=== PATIENT | female | born 1995 | race Caucasian/White ===

== ENCOUNTER 2019-03-07 00:14 | Emergency (ER) | payer OTHER, SELFPAY ==
[~2019-03-07] VITALS: Ht 157.5 cm; Wt 71.7 kg
[2019-03-07 00:15] VITALS: BP 113/56
== END 2019-03-07 01:50 | disposition left against medical advice (07) ==
LOC: M ED 00:14
DX: Z53.29 Procedure and treatment not carried out because of patient's decision for other reasons (principal)

== ENCOUNTER 2019-03-07 00:25 | Outpatient (CLI) | payer OTHER ==
[~2019-03-07] VITALS: Ht 157.5 cm; Wt 71.0 kg
== END 2019-03-07 01:30 | disposition home or self-care (01) ==
LOC: M LDO 00:25
PROVIDERS: ATTEND Specialist
DX: O99.89 Other specified diseases and conditions complicating pregnancy, childbirth and the puerperium (principal); Z3A.21 21 weeks gestation of pregnancy; R10.9 Unspecified abdominal pain; R06.02 Shortness of breath
CPT/HCPCS: G0378; G0463

== ENCOUNTER 2019-03-07 01:31 | Emergency (ER) | payer OTHER ==
[~2019-03-07] VITALS: Ht 154.9 cm; Wt 71.0 kg
[2019-03-07 05:30] LABS: BASO % 0.1 % (0.0-1.0); EOS # 0.1 10^3/uL (0.0-0.50); HEMATOCRIT 28.1 % (36.0-47.0); LYMPH # 2.1 10^3/uL (1.5-6.5); LYMPH % 22.5 % (24.0-44.0); MEAN CORPUSCULAR HEMOGLOBIN 32.5 pg (27.0-33.0); MEAN CORPUSCULAR HGB CONC 35.6 g/dl (32.0-36.5); MEAN CORPUSCULAR VOLUME 91.2 fl (80.0-96.0); MONO # 0.4 10^3/uL (0.0-0.8); MONO % 4.8 % (0.0-5.0); NEUTROPHILS # 6.5 10^3/uL (1.8-7.7); NEUTROPHILS % 71.3 % (36.0-66.0); PLATELET COUNT, AUTOMATED 154 10^3/uL (150-450); RED BLOOD COUNT 3.08 10^6/uL (4.00-5.40); WHITE BLOOD COUNT 9.2 10^3/uL (4.0-10.0)
[2019-03-07 05:56] LABS: BLOOD UREA NITROGEN 6 MG/DL (7-18); CALCIUM LEVEL 8.7 MG/DL (8.5-10.1); CARBON DIOXIDE LEVEL 24 MEQ/L (21-32); CHLORIDE LEVEL 110 MEQ/L (98-107); CK-MB VALUE MASS < 1.0 NG/ML (<3.6); CPK CREATINE PHOSPHOKINASE 23 U/L (26-192); CREATININE FOR GFR 0.62 MG/DL (0.55-1.30); GLOMERULAR FILTRATION RATE > 60.0 (>60); GLUCOSE, FASTING 79 MG/DL (70-100); MB/CK RELATIVE INDEX 4.35 (< OR =4); POTASSIUM SERUM 4.2 MEQ/L (3.5-5.1); SODIUM LEVEL 141 MEQ/L (136-145); TROPONIN I < 0.02 NG/ML (< 0.10)
[2019-03-07] MEDS ORDERED: GI COCKTAIL 50ML BTL(HYOSCYAMINE/MAALOX/LIDOCAINE VISCOUS)(1:3:1) PO ONE (06:30)
[2019-03-07 07:00] VITALS: BP 106/62
--- NOTE | 2019-03-07 21:23 | ECGEPIP ---
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
== END 2019-03-07 07:10 | disposition home or self-care (01) ==
LOC: M ED 01:31
DX: O99.512 Diseases of the respiratory system complicating pregnancy, second trimester (principal); R06.00 Dyspnea, unspecified; J45.909 Unspecified asthma, uncomplicated; O99.412 Diseases of the circulatory system complicating pregnancy, second trimester; I45.10 Unspecified right bundle-branch block; O99.612 Diseases of the digestive system complicating pregnancy, second trimester; K27.9 Peptic ulcer, site unspecified, unspecified as acute or chronic, without hemorrhage or perforation; Z88.8 Allergy status to other drugs, medicaments and biological substances; Z3A.21 21 weeks gestation of pregnancy

== ENCOUNTER 2019-05-17 19:31 | Outpatient (CLI) | payer OTHER ==
[~2019-05-17] VITALS: Ht 157.5 cm; Wt 75.9 kg
[2019-05-17] MEDS ORDERED: TUMS500C PO (19:50)
[2019-05-17] MEDS ORDERED: ZANT150T40 PO (19:50)
[2019-05-17] MEDS ORDERED: PRENTAB9 PO (19:50)
[2019-05-17] MEDS ORDERED: MAPA500T2 PO (19:50)
[2019-05-17 19:57] VITALS: BP 107/59
[2019-05-17 20:39] VITALS: BP 107/62
[2019-05-17] MEDS ORDERED: ONDANSETRON 4 MG ORAL DISINTEGRATING TAB (Q0162 PER 1MG) PO ONE (21:00)
--- NOTE | 2019-05-17 21:08 | IPNPDOC ---
Text Note Date of Service The patient was seen on 05/17/19. NOTE Patient is a 23 yo g1 @ 31+2WKS presents to L&D with concern for epigastric pain with n/v and diarrhea x 1 day. She report she had emesis when after bf this morning. She went to be and when she woke up she started having epigastric pain and had watery diarrhea. Was not able to keep food down. She has history of GERD and currently on zantac. she did not get to take her zantac today due to concern for emesis. Now her epigastric pain has improved since this afternoon. She took zofran and refused GI cocktail because that caused her to have emesis earlier during this . vitals: reviewed, normal nad abd: gravid, soft, mild tenderness epigastric, no guarding or rebound fht: 140/mod anish/pos accel/no decel toco: quiet a/p patient with n/v/diarrhea resolving. tolerated oral and felt improved while in triage. Discussed with patient s/s to return sooner. continue with zantac. keep well hydration. f/u in clinic as schedule. DO KT VS,Karie, I+O VS, [place], I+O Vital Signs Date Time Temp Pulse Resp B/P (MAP) Pulse Ox O2 Delivery O2 Flow Rate FiO2 05/17/19 20:39 105 18 107/62 (77) 05/17/19 19:57 98.2 KEVYN MERAZ DO May 17, 2019 21:08
[2019-05-17] MEDS ORDERED: GI COCKTAIL 50ML BTL(HYOSCYAMINE/MAALOX/LIDOCAINE VISCOUS)(1:3:1) PO ONE (22:00)
== END 2019-05-17 21:00 | disposition home or self-care (01) ==
LOC: M LDO 19:31
PROVIDERS: ATTEND Obstetrics & Gynecology
DX: O99.89 Other specified diseases and conditions complicating pregnancy, childbirth and the puerperium (principal); Z3A.31 31 weeks gestation of pregnancy; R11.2 Nausea with vomiting, unspecified; R19.7 Diarrhea, unspecified
CPT/HCPCS: 59025; G0378; G0463; Q0162

== ENCOUNTER 2019-07-05 09:34 | Outpatient (CLI) | payer OTHER ==
[~2019-07-05] VITALS: Ht 157.5 cm; Wt 76.6 kg
[~2019-07-05 09:34] MED LIST: MAPA500T2 PO; PRENTAB9 PO; TUMS500C PO; ZANT150T40 PO
--- NOTE | 2019-07-05 17:24 | IPNPDOC ---
Text Note Date of Service The patient was seen on 07/05/19. NOTE patient is a 23 yo G1 @ 38+2wks gestation presents with concern for contractions as well as possible leakage of fluid. She did not have a gush of fluid, but had trickle of clear discharge. She had coitus shortly before. denies VB. 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 discharge instructions given. Discussed with patient option of social induction to delivery at 39wks gestation to coordinate care with appropriate provider. Patient and spouse desires to have induction scheduled. patient scheduled for induction on night of [id number]. all questions answered. DO KT Carreon LUAT N. DO Jul 05, 2019 17:24
== END 2019-07-05 15:35 | disposition home or self-care (01) ==
LOC: M LDO 09:34
PROVIDERS: ATTEND Obstetrics & Gynecology
DX: O26.893 Other specified pregnancy related conditions, third trimester (principal); O47.1 False labor at or after 37 completed weeks of gestation; Z3A.38 38 weeks gestation of pregnancy
CPT/HCPCS: 59025; G0378; G0463

== ENCOUNTER 2019-07-09 22:15 | Inpatient (IN) | payer OTHER ==
[~2019-07-09] VITALS: Ht 157.5 cm; Wt 77.6 kg
[2019-07-09] MEDS ORDERED: LACTATED RINGER'S 1000 ML IV STA (22:23)
[2019-07-09] MEDS: LR 1,000 ML IV SCH (22:23)
[2019-07-09] MEDS ORDERED: OXYTOCIN DRIP 30 UNITS in IV 1 EA IV SCH (22:30)
[2019-07-09 23:01] LABS: HEMOGLOBIN 11.9 g/dl (12.0-15.5); MEAN CORPUSCULAR HEMOGLOBIN 31.3 pg (27.0-33.0); MEAN CORPUSCULAR VOLUME 92.1 fl (80.0-96.0); PLATELET COUNT, AUTOMATED 147 10^3/uL (150-450); WHITE BLOOD COUNT 11.3 10^3/uL (4.0-10.0)
--- NOTE | 2019-07-09 23:30 | HPEPDOC ---
Obstetrical History & Physical General Date of Admission Jul 09, 2019 at 22:15 History of Present Illness Patient is a 23 yo G1 @38+6wks by LMP c/w 14wks US GORDO([id number]) presents for social induction. patient without concerns. denies ctx/lof/vb. 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 last used 5 years ago Surgical History: Upper endoscopy Family History Significant Family History: No pertinent family hx Social History Marital Status: Family situation: Spouse/partner home * Smoker: non-smoker Alcohol: Denies Drugs: denies Imunizations Tdap status: current Influenza Status: declined Allergies Coded Allergies: guaifenesin (Verified Allergy, Unknown, 07/05/19) Medications Scheduled Calcium Carbonate (Tums) 200 Mg Tab.chew, 2 TAB PO QID for cough and congestion No.137/Iron/Folic Acd ( Vitamin Tablet) 1 Each Tablet, 1 TAB PO DAILY Miscellaneous Medications Acetaminophen (Mapap) 500 Mg Tablet, 1,000 MG PO Physical Examination Physical Examination GENERAL: Alert and oriented times three. ABDOMEN: Gravid and non-tender to touch. FETUS: Fetus is vertex (VTX) by Ronnell and by cervical exam. HEART RATE: s1s2 s m/g/c LUNGS: Clear to auscultation (CTA) s w/r/r EXTREMITIES: No edema/erythema/tenderness EFW: 3200gm Laboratory Data 24H LABS Laboratory Tests 2 07/09/19 22:56: Nucleated Red Blood Cells % (auto) 0.0 CBC/BMP Laboratory Tests 07/09/19 22:56 Pertinent Laboratoy Data Blood Type: A+ RBC Antibody Screen: Negative HIV: Negative Hepatitis B: Negative Rapid Plasma Reagin: Nonreactive Rubella: Immune Chlamydia/Gonorrhea: Positive Group B Streptococcus: Negative Anatomy Ultrasound Placenta Location: Posterior Normal Anatomy: Yes Placenta Previa: No Vaginal Examination Dilation: 3 cm Effacement: 50% Station: -2 Cervical Consistency: Medium Cervical Position: Middle Presentation: Cephalic presentation Assessment Heart Rate (FHR): 120 Variability: Moderate Accelerations: Positive Decelerations: None Tocometer Contractions: No Assessment/Plan Assessment patient is a 23 yo G1 @38+6wks gestation by lmp c/w 14wks US GORDO([id number]) admitted for social induction of labor. Discussed using oxytocin and arom as needed for induction of labor. Discussed monitoring with external monitors for contractions and heart rate with internal monitor as clinically indicated. Risk of delivery for maternal/ concerns, risk of infection requiring iv antibiotics, bleeding needing blood transfusion and associated risk of anaphylactic reaction and transmission of blood borne pathogens such as HIV and hepatitis, use of forceps or vacuum to assist in vaginal delivery in an emergency or maternal exhaustion and associated risks of injuring to baby and worsen maternal laceration, episiotomy discussed with patient. Plan Admit and orient. Financial Adviser and consent. Diet: clear liquid Group B Streptococcus (GBS) negative Labs and intravenous (IV) per unit protocol. Anticipate normal spontaneous delivery C-S as indicated KEVYN MERAZ DO Jul 09, 2019 23:27
[2019-07-09] MEDS ORDERED: PROMETHAZINE INJ 25 MG/ML VIAL (J2550) IV ONE (23:45)
[2019-07-09] MEDS ORDERED: NALBUPHINE HCL 10 MG/ML AMP (J2300) IM ONE (23:45)
[2019-07-09] MEDS ORDERED: NALBUPHINE HCL 10 MG/ML AMP (J2300) IV ONE (23:45)
[2019-07-10] VITALS (12 sets, daily range): BP systolic 105–137; BP diastolic 57–80
[2019-07-10] MEDS: LR 1,000 ML IV SCH (07:26)
--- NOTE | 2019-07-10 07:46 | IPNPDOC ---
Text Note Date of Service The patient was seen on 07/10/19. NOTE Patient is a 23 yo G1 @ 39wks gestation under going social induction of labor. she reports feeling mild contractions. pit: 10mU/min vitals: normal nad fht: 125/mod anish/pos accel/no decel toco: ctx q 2mins ce: 3-4/50/-2, AROM clear a/p patient not in labor, continue to titrate pit to effect. pain management per patient preference. recheck in 6-8hrs, sooner as indicated. do saige VS,Karie, I+O VS, Karie, I+O Laboratory Tests 07/09/19 22:56 KEVYN MERAZ DO Jul 10, 2019 07:46
--- NOTE | 2019-07-10 13:14 | DNPDOC ---
[facility] Delivery Note Delivery Note DATE OF DELIVERY: 07/10/2019 PREDELIVERY DIAGNOSIS: 39 weeks' gestation POST DELIVERY DIAGNOSIS: Delivered. PROCEDURE: Spontaneous vaginal delivery MARKETING SUPPORT MANAGER: Dr. Jazzmine Carreon DO ANESTHESIA: none ESTIMATED BLOOD LOSS: 200 mL. FINDINGS: 7pound 1 ounce, 3210gm, female infant, Score 9/9, left compound hand. DELIVERY SUMMARY: With good maternal effort, baby delivered OA, restituted LOT. Anterior shoulder delivered with left compound hand. Posterior shoulder delivered, body followed with ease. baby placed on maternal abdomen. cord clamped x2 and cut by FOB. Pitocin bolus started, placenta delivered spontaneously, fundus massaged firm. Inspection revealed left labial tear, hemostatic, not needing repair. baby and mother bonding when I left the room. DO KT Carreon LUAT N. DO Jul 10, 2019 13:14
[2019-07-10] MEDS ORDERED: IBUPROFEN 800 MG TAB PO PRN (13:45)
[2019-07-10] MEDS ORDERED: DIBUCAINE 1% OINTMENT 30GM TOP PRN (13:45)
[2019-07-10] MEDS ORDERED: DOCUSATE SODIUM 100 MG CAP PO PRN (13:45)
[2019-07-10] MEDS ORDERED: ACETAMINOPHEN 500 MG TAB PO PRN (13:45)
[2019-07-10] MEDS ORDERED: RHOGAM 300 MCG (1500 IU) INJ (J2790) IM SCH (13:45)
[2019-07-10] MEDS ORDERED: MEASLES,MUMPS,RUBELLA VACCINE INJ (MMR-II) (90707) SC SCH (13:45)
[2019-07-10] MEDS ORDERED: ACETAMINOPHEN 650 MG SUPP PR PRN (13:45)
[2019-07-10] MEDS ORDERED: LR 1,000 ML IV SCH (14:00)
[2019-07-10] MEDS ORDERED: OXYTOCIN DRIP 30 UNITS in IV 1 EA IV SCH (14:00)
[2019-07-11 05:40] VITALS: BP 102/56
--- NOTE | 2019-07-11 08:03 | IPNPDOC ---
Progress Note Date of Service: Jul 11, 2019 Day#: 1 Progress Note SUBJECT: Patient is a 23 yo S/P PPD #1. She has been ambulating, voi ding spontaneously without issue and tolerating regular diet. Breast feeding without issue. Reports lochia is like a normal period. Plans on NorQD for contraceptive. patient's nurse solar sales representative present for entirety of visit. OBJECTIVE: VITAL SIGNS: Within normal limits, afebrile. Alert and oriented times three. Abdomen: Fundus firm at U-2. Soft, NTTP. LE: no edema/erythema/tenderness A/P patient is ppd #1, doing well. encourage bf. discussed contraception. cont routine PPC. anticipate d/c home tomorrow. Le, DO VS, I&O, 24H, Fishbone Vital Signs/I&O Vital Signs Date Time Temp Pulse Resp B/P (MAP) Pulse Ox O2 Delivery O2 Flow Rate FiO2 07/11/19 05:40 97.5 73 14 102/56 (71) 100 Room Air I&O- Last 24 Hours up to 6 AM 07/11/19 06:00 Intake Total 2698 ml Output Total 1800 ml Balance 898 ml KEVYN MERAZ DO Jul 11, 2019 08:03
[2019-07-11] MEDS ORDERED: PRENATAL VITAMINS CHEWABLE TABLET PO SCH (09:00)
[2019-07-11 17:54] VITALS: BP 114/67
[2019-07-12 06:02] VITALS: BP 105/57
[2019-07-12] MEDS ORDERED: IBUP80TA PO (09:44)
[2019-07-12] MEDS ORDERED: DIBU10OI TOP (09:44)
--- NOTE | 2019-07-12 09:48 | IPNPDOC ---
Progress Note Date of Service: Jul 12, 2019 Day#: 2 Progress Note PPD 2 SUBJECT: Patient is a 24yo [id number] s/p uncomplicated , doing well on PPD #2. She has been ambulating, voiding spontaneously without issue and tolerating regular diet. Breast feeding without issue. Reports lochia is like a normal period. No f/c/n/v/CP/SOB. OBJECTIVE: VITAL SIGNS: Within normal limits, afebrile. Alert and oriented times three. Abdomen: Fundus firm at U-2. Soft, NTTP. ASSESSMENT: Patient is a 24yo [id number] s/p uncomplicated , doing well on PPD #2. Vitals within normal limits, afebrile, hemodynamically stable with no evidence of infection. PLAN: 1. Discharge to home today. 2. Tylenol and Motrin for pain. 3. Encourage breast feeding and ambulation. 4. Minipill for contraception prescribed 5. Routine PP visit in 6 weeks in clinic. 6. Discussed return precautions at length. Dr. Deborah Caban MD VS, I&O, 24H, Fishbone Vital Signs/I&O Vital Signs Date Time Temp Pulse Resp B/P (MAP) Pulse Ox O2 Delivery O2 Flow Rate FiO2 07/12/19 06:02 99.3 74 16 105/57 (73) 07/11/19 05:40 100 Room Air Deborah Caban MD Jul 12, 2019 09:48
--- NOTE | 2019-07-12 09:49 | OBDS ---
[facility] Obstetrical Discharge Sum. Obstetrical Discharge Summary Seedling Sorter/Provider: KEVYN MERAZ DO : 1 Term: 1 Pre-term: 0 Abortions: 0 Livin VDRL: Non-Reactive Rh: Positive Rubella: Immune Infant Sex: Female Weight: pounds, grams (3210gm) A/P, Post Course List any complications Admission diagnosis: Discharge diagnosis: Condition at Discharge: stable Discharge Instructions: Home Activity: as tolerated Diet: regular Medications: Follow-up: 1-2 weeks Hospital course: Patient admitted to labor and delivery for social induction. Patient progressed to have spontaneous vaginal delivery at 39wks gestation. course was uncomplicated and on day 2 she was meeting all milestones and desired discharge. She had normal vitals, benign exam and was hemodynamically stable wit h no evidence of infection. KEVYN Saxena DO Jul 10, 2019 13:18 Deborah Caban MD Jul 12, 2019 09:49
== END 2019-07-12 13:00 | disposition home or self-care (01) | DRG 807 ==
LOC: M LDI 22:15 → M OBS 07-10 16:08
PROVIDERS: ADMIT Obstetrics & Gynecology; ATTEND Obstetrics & Gynecology
PROC: 3E033VJ Introduction of Other Hormone into Peripheral Vein, Percutaneous Approach (ICD-10-PCS; 2019-07-09)
PROC: 10E0XZZ Delivery of Products of Conception, External Approach (ICD-10-PCS; principal; 2019-07-10)
DX: O32.6XX0 Maternal care for compound presentation, not applicable or unspecified (principal); Z37.0 Single live birth; Z3A.38 38 weeks gestation of pregnancy

== ENCOUNTER 2020-01-28 16:42 | Inpatient (IN) | payer OTHER ==
[~2020-01-28] VITALS: Ht 157.5 cm; Wt 70.4 kg
[~2020-01-28 16:42] MED LIST changes: +DIBU10OI TOP; +IBUP80TA PO
[2020-01-28 17:46] LABS: HEMOGLOBIN 13.9 g/dl (12.0-15.5); MEAN CORPUSCULAR HEMOGLOBIN 29.2 pg (27.0-33.0); MEAN CORPUSCULAR HGB CONC 34.8 g/dl (32.0-36.5); PLATELET COUNT, AUTOMATED 204 10^3/uL (150-450); RED BLOOD COUNT 4.76 10^6/uL (4.00-5.40); WHITE BLOOD COUNT 10.9 10^3/uL (4.0-10.0)
[2020-01-28 18:14] LABS: HCG, SERUM QUALITATIVE NEGATIVE (NEGATIVE)
[2020-01-28 18:18] LABS: AMPHETAMINES LEVEL URINE NEGATIVE (NEGATIVE); BARBITURATES URINE NEGATIVE (NEGATIVE); BENZODIAZEPINES URINE NEGATIVE (NEGATIVE); CANNABINOIDS URINE NEGATIVE (NEGATIVE); COCAINE METABOLITE URINE NEGATIVE (NEGATIVE); METHADONE URINE NEGATIVE (NEGATIVE); OPIATES URINE NEGATIVE (NEGATIVE); PHENCYCLIDINE URINE NEGATIVE (NEGATIVE)
[2020-01-28 18:22] LABS: ACETAMINOPHEN LEVEL < 2.0 UG/ML (10.0-30.0); ALT/SGPT 37 U/L (12-78); BILIRUBIN,DIRECT 0.2 MG/DL (0.0-0.2); BILIRUBIN,TOTAL 0.4 MG/DL (0.2-1.0); BLOOD UREA NITROGEN 17 MG/DL (7-18); CALCIUM LEVEL 9.2 MG/DL (8.5-10.1); CARBON DIOXIDE LEVEL 28 MEQ/L (21-32); CHLORIDE LEVEL 107 MEQ/L (98-107); CREATININE FOR GFR 0.99 MG/DL (0.55-1.30); ETHYL ALCOHOL (ETHANOL) < 0.003 % (0.000-0.010); GLOMERULAR FILTRATION RATE > 60.0 (>60); GLUCOSE, FASTING 69 MG/DL (70-100); SALICYLATE LEVEL < 1.7 MG/DL (5.0-30.0); SODIUM LEVEL 140 MEQ/L (136-145); TOTAL PROTEIN 7.8 GM/DL (6.4-8.2)
[2020-01-28] MEDS ORDERED: MAALOX 30 ML SUSP *UDC PO PRN (19:15)
[2020-01-28] MEDS ORDERED: MOM 30ML SUSPENSION UDC PO PRN (19:15)
[2020-01-28] MEDS ORDERED: ACETAMINOPHEN TAB 650MG DOSE (2X325MG) PO PRN (19:15)
[2020-01-28] MEDS ORDERED: traZODone 50 MG TAB PO PRN (19:15)
[2020-01-28 21:08] VITALS: BP 135/82
[2020-01-29 06:25] VITALS: BP 124/76
[2020-01-29] MEDS: ARIPiprazole 2 MG TAB PO SCH (12:48)
--- NOTE | 2020-01-29 15:21 | HPEPDOC ---
[facility] Medical History & Physical Date of Admission Jan 29, 2020 Date of Service: Jan 29, 2020 Attending Physician: Nakita Fatima MD History and Physical HISTORY OF PRESENT ILLNESS: Patient is a 24-year-old female with past medical history of depression, prior suicidal attempt by overdose, peptic ulcer disease, depression who presented to [facility] emergency room on 01/28/2020 with the chief complaint of feeling depressed and having suicidal ideations. According to the patient she h as been very stressed at home with an infant with biliary colic, a spouse who she says does not help and feeling overwhelmed. She feels as though she doesn't have a good support system at home and admits to having relationship stressors with her and with her 's family. She admits to feeling down and tearful, anxious at times, having decreased motivation, feeling impulsive, having nightmares about hurting her baby, having poor sleep. She says that she has thought about hurting her baby but has caught herself prior to shaking the baby. She was previously on Zoloft, but her therapist stopped the meds 2 weeks ago due to her feeling as though this was not helping. She's been trying to get into see a psychiatrist for over a month and she just got a new patient appointment at [facility]. 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 He was deployed a lot for the first 6 months of her new baby's life and at times does not seem interested in trying to help her. She often feels overwhelmed because he acts disinterested and upset at her if sh e asks for help. She did not have a plan to hurt herself but she told her that if she did not get help now that she would probably start planning to hurt herself again. Her came home from work and brought her to the emergency room. In the emergency room her UDS was negative, she was cooperative. The patient was ultimately admitted to inpatient mental health with the chief diagnosis of unspecified depressive disorder, suicidal ideation. REVIEW OF SYSTEMS: Negative except for what is mentioned above. PAST MEDICAL HISTORY: 1. Depression 2. Intermittent right lower quadrant pain believed to be secondary to ovaries, chronic 3. History of benign tumor diagnosed in 2018 later found to have resolved 4. Peptic ulcer disease/GERD 5. depression 6. Anxiety PAST SURGICAL HISTORY: 1. Endoscopy FAMILY HISTORY: Father: Patient does not know much about her father's medical history, unknown and he is alive Mother: Polycystic kidney disease, asthma, bipolar disorder. Alive SOCIAL HISTORY: The patient denies smoking, drinks alcohol socially. Denies illicit drug use. She lives in the local area with her who is active duty . Patient follows regularly with the behavioral health therapist and had a recent psychiatric referral to [facility]. She has not seen her psychiatrist yet. ALLERGIES: Please see below. HOME MEDICATIONS: Please see below. PHYSICAL EXAMINATION: CONSTITUTIONAL: No acute distress, resting comfortably, AAO x 3 EYES: PERRLA, EOM intact HENT, MOUTH: Normocephalic, atraumatic, moist mucous membranes, NECK: SUPPLE, no JVD, no lymphadenopathy, no carotid bruit CV: Regular rate and rhythm, S1S2 normal, no murmurs/rubs/gallops RESPIRATORY: Clear to auscultation bilaterally, no rales/rhonchi/wheezes GI: BS positive in 4 quadrants, soft, nontender, nondistended, no rebound or guarding, no organomegaly : Deferred MUSCULOSKELETAL: Normal ROM. No cyanosis, clubbing, swelling, joint deformity, extremity edema INTEGUMENTARY: Intact, no rashes, no lesions, no erythema NEUROLOGIC: Cranial Nerves II-XII are intact, no focal deficits PSYCHIATRIC: Mood and affect are normal LABORATORY DATA: Please see below IMAGING: None ASSESSMENT: 24-year-old female admitted for unspecified depressive disorder, suicidal ideation. PLAN: 1. Unspecified depressive disorder, suicide ideation. Will defer to psychiatric team. 2. depression. Will defer to psychiatric team. 3. Peptic ulcer disease history/GERD. The patient is not on outpatient treatment. Denies symptoms. 4. Intermittent right lower quadrant pain believed to be secondary to ovaries, chronic. Patient states that the pain returns monthly and is sometimes correlated with her menses. At this time this is chronic and stable. She is advised to follow-up with her DIETARY DIRECTOR or PCP. DISPOSITION: At this time it appears as though all of her active medical issues are stable. We will sign off but if we are needed again please do not hesitate to reach out to us and discuss the case. Thank you. Vital Signs Vital Signs Date Time Temp Pulse Resp B/P (MAP) Pulse Ox O2 Delivery O2 Flow Rate FiO2 6/20/20 06:25 97.6 80 12 124/76 (92) 99 Room Air Laboratory Data Labs 24H Laboratory Tests 2 01/28/20 17:30: Nucleated Red Blood Cells % (auto) 0.0, Anion Gap 5L, Glomerular Filtration Rate > 60.0, Calcium Level 9.2, Total Bilirubin 0.4, Direct Bilirubin 0.2, Aspartate Amino Transf (AST/SGOT) 23, Alanine Aminotransferase (ALT/SGPT) 37, Alkaline Phosphatase 134H, Total Protein 7.8, Albumin 4.0, Albumin/Globulin Ratio 1.1L, Thyroid Stimulating Hormone (TSH) 2.880, Human Chorionic Gonadotropin, Qual NEGATIVE, Salicylates Level < 1.7L, Urine Opiates Screen NEGATIVE, Urine Methadone Screen NEGATIVE, Acetaminophen Level < 2.0L, Urine Barbiturates Screen NEGATIVE, Urine Phencyclidine Screen NEGATIVE, Urine Amphetamines Screen NEGATIVE, Urine Benzodiazepines Screen NEGATIVE, Urine Cocaine Metabolite Screen NEGATIVE, Urine Cannabinoids Screen NEGATIVE, Ethyl Alcohol Level < 0.003 CBC/BMP Laboratory Tests 01/28/20 17:30 Home Medications No Active Prescriptions or Reported Meds Allergies Coded Allergies: guaifenesin (Verified Allergy, Unknown, 07/05/19) A-FIB/CHADSVASC A-FIB History Current/History of A-Fib/PAF?: No Current PO Anticoag Therapy: No Age/Risk Factor Scoring CHADSVASC: CHADSVASC Response (Comments) Value Age Risk Factor Age < 65 years old 0 Gender Risk Factor Female 1 Hx of CHF No 0 Hx of HTN No 0 Hx of Stroke/TIA/or VTE No 0 Hx of Diabetes No 0 Hx of Vascular Disease No 0 Total 1 Treatment Treatment ordered: NONE (none) Nakita Fatima MD Jan 29, 2020 15:21
[2020-01-29 15:27] VITALS: BP 108/59
[2020-01-30] MEDS ORDERED: IBUPROFEN 600MG TAB PO PRN (00:30)
[2020-01-30 06:05] VITALS: BP 115/56
[2020-01-30 08:53] LABS: CHOLESTEROL RISK RATIO 2.157 (<5)
[2020-01-30] MEDS: ARIPiprazole 2 MG TAB PO SCH (09:01)
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
[2020-01-30 15:49] VITALS: BP 121/59
[2020-01-31 06:32] VITALS: BP 132/68
[2020-01-31] MEDS: ARIPiprazole 2 MG TAB PO SCH (08:10)
--- NOTE | 2020-01-31 10:54 | MHIPN ---
DATE: 01/30/2020 The patient is seen via telepsychiatry due to the current coronavirus crisis. The patient today tells me that she is not feeling depressed today. She says she is keeping busy and enjoying it. She says she is doing puzzles and activities. She also feels that the medications are helping which she is referring to the Abilify as she slept well. She has no suicidal thoughts. MENTAL STATUS EXAMINATION: She is alert, oriented times three. Pleasant and cooperative, verbally spontaneous. Eye contact is good. Mood is better. Affect full range and appropriate. She is not psychotic, suicidal or homicidal. Concentration is fair. Memory intact. Insight and judgment fair. DIAGNOSIS: Bipolar disorder type 2. TREATMENT PLAN: Will continue to monitor the patient for continued elevation in stabilization of her mood. Continued resolution of suicidal ideation.
[2020-01-31 16:34] VITALS: BP 121/65
--- NOTE | 2020-01-31 19:59 | MHIPN ---
DATE: 01/31/2020 This patient is seen via telepsychiatry due to the current coronavirus. The patient today states that she is doing good. She says she is not feeling as depressed, that she slept good. She feels that "just having some time to myself" is helping her feel better. MENTAL STATUS EXAM: She is alert and oriented times three. She is pleasant and cooperative, verbally spontaneous. Eye contact is good. No formal thought disorder noted. Her mood is "better." Affect is full range and appropriate to mood. She is not psychotic. She is denying suicidal or homicidal ideations. Concentration is fair. Memory is intact. Insight and judgment is fair. DIAGNOSIS: Bipolar disorder type 2. TREATMENT PLAN: At this point, the patient seems to be tolerating the Abilify well so far. It sounds like she is sleeping better, energy level is going back to normal. She is denying any suicidal ideations, and she says that she is feeling less depressed. We will continue to monitor the patient for continued elevation and stabilization of her mood and continued resolution of suicidal ideations, and we will look at setting up a meeting with patient and prior to discharge.
[2020-02-01 06:29] VITALS: BP 113/62
[2020-02-01] MEDS: ARIPiprazole 2 MG TAB PO SCH (08:12)
[2020-02-01] MEDS ORDERED: ABIL1TAB13 PO (13:45)
--- NOTE | 2020-02-04 15:54 | MHDS ---
DATE OF ADMISSION: 01/28/2020 DATE OF DISCHARGE: 02/01/2020 This evaluation is conducted via telepsychiatry due to the current coronavirus crisis. This patient is a 24-year-old woman who is admitted with complaints of severe depression and having suicidal ideations. The depression appeared to be type that started for the past 6 months, at which time she gave to her daughter. Upon further evaluation, however, I felt that this patient met the criteria for bipolar disorder. MEDICAL EVALUATION AND LABORATORY RESULTS: The patient did have a physical exam that was completed by Dr. Nakita Fatima. The patient has a history of peptic ulcer disease and gastroesophageal reflux disease (GERD) that was stable, and she has a history of intermittent right lower quadrant pain secondary to chronic ovarian pain, and that is followed by her [facility] provider. She had a CBC with differential and renal profile, and that was all normal, and we did do a lipid profile. At discharge, the patient was alert and oriented times three. She was pleasant and cooperative, verbally spontaneous. Eye contact good. Mood is good. Affect full range and appropriate. She is not psychotic, suicidal, homicidal. Concentration and memory are good. Insight and judgment are good. DISCHARGE DIAGNOSIS: Bipolar disorder, type 2. COURSE DURING HOSPITALIZATION: As I said, the patient was very depressed at first and had some suicidal thoughts that quickly resolved. By the time of discharge she was indicating that she was no longer feeling depressed. I started her on Abilify 2 mg daily, which she tolerated well. The patient had a phone meeting with the community development planner and her . The indicated that he had no concerns about the patient being discharged. The patient had advised me that she and her had talked about, and the understood now, that she needed some assistance with taking care of their daughter. The community development planner arranged outpatient followup for her so that she would continue to see a counselor and see a psychiatrist to continue her psychiatric medications. MYRON
[2020-09-19] MEDS ORDERED: BUPR150T4 PO (13:35)
[2020-09-19] MEDS ORDERED: LEVO1.5T2 PO (13:35)
[2020-09-19] MEDS ORDERED: ARIP1TAB6 PO (13:35)
[2020-09-19] MEDS ORDERED: PROAAER10 INH (13:51)
== END 2020-02-01 14:59 | disposition home or self-care (01) | DRG 885 ==
LOC: M ED 16:42 → M PSY 19:16 → M ED 20:02
PROVIDERS: ADMIT Psychiatry & Neurology Psychiatry; ATTEND Psychiatry & Neurology Addiction Medicine
DX: F31.81 Bipolar II disorder (principal); Z91.5 Personal history of self-harm; Z62.811 Personal history of psychological abuse in childhood; Z62.810 Personal history of physical and sexual abuse in childhood; Z91.410 Personal history of adult physical and sexual abuse; K21.9 Gastro-esophageal reflux disease without esophagitis; Z81.8 Family history of other mental and behavioral disorders; R10.31 Right lower quadrant pain; Z88.8 Allergy status to other drugs, medicaments and biological substances

== ENCOUNTER 2020-09-26 09:52 | Day surgery (SDC) | payer OTHER ==
[~2020-09-26] VITALS: Ht 157.5 cm; Wt 75.3 kg
[~2020-09-26 09:52] MED LIST changes: +ABIL1TAB13 PO; +ARIP1TAB6 PO; +BUPR150T4 PO; +LEVO1.5T2 PO; +LR 1,000 ML IV ONE; +PROAAER10 INH
--- OUTSIDE RECORDS SUMMARY | 2020-09-26 09:55 | CCD ---
Author Author [facility] Organization [facility] Address Unknown Phone Unavailable Care Team Providers Care Gravity Prospecting Supervisor Name Role Phone Vi STEPHENS Unavailable Unavailable CHAD DAWSON Unavailable Unavailable Chioma RANGEL Unavailable Unavailable GURINDER HAJI Unavailable Unavailable Re-disclosure Warning The records that you are about to access may contain information from federally-assisted alcohol or drug abuse programs. If such information is present, then the following federally mandated warning applies: This information has been disclosed to you from records protected by federal confidentiality rules (42 CFR part 2). The federal rules prohibit you from making any further disclosure of this information unless further disclosure is expressly permitted by the written consent of the person to whom it pertains or as otherwise permitted by 42 CFR part 2. A general authorization for the release of medical or other information is NOT sufficient for this purpose. The Federal rules restrict any use of the information to criminally investigate or prosecute any alcohol or drug abuse patient.The records that you are about to access may contain highly sensitive health information, the redisclosure of which is protected by Article 27-F of the [facility] Public Health law. If you continue you may have access to information: Regarding HIV / AIDS; Provided by facilities licensed or operated by the [facility] Office of Mental Health; or Provided by the [facility] Office for People With Developmental Disabilities. If such information is present, then the following [facility] mandated warning applies: This information has been disclosed to you from confidential records which are protected by state law. State law prohibits you from making any further disclosure of this information without the specific written consent of the person to whom it pertains, or as otherwise permitted by law. Any unauthorized further disclosure in violation of state law may result in a fine or retirement sentence or both. A general authorization for the release of medical or other information is NOT sufficient authorization for further disc losure. Encounters Encounter Providers Location Date Indications Data Source(s ) Outpatient Attender: HÉCTOR STEPHENS 09/21/2020 11:00:00 AM E [facility] Outpatient Attender: HÉCTOR STEPHENS 09/05/2020 01:00:00 PM E [facility] Outpatient Attender: HÉCTOR STEPHENS 08/31/2020 11:00:00 AM E [facility] Outpatient Attender: GURINDER HAJI 08/28/2020 01:30:00 PM ES [facility] Outpatient Attender: HÉCTOR STEPHENS 08/17/2020 10:00:00 AM [facility] Outpatient Attender: HÉCTOR STEPHENS 08/08/2020 10:00:00 AM E [facility] Outpatient Attender: HÉCTOR STEPHENS 07/18/2020 10:00:00 AM E [facility] Outpatient Attender: HÉCTOR STEPHENS 07/10/2020 10:00:00 AM [facility] Outpatient Attender: GURINDER HAJI 07/03/2020 01:30:00 PM [facility] Outpatient Attender: HÉCTOR STEPHENS 06/27/2020 03:00:00 PM E [facility] Outpatient Attender: HÉCTOR STEPHENS 06/13/2020 03:00:00 PM E [facility] Outpatient Attender: HÉCTOR STEPHENS 05/30/2020 03:00:00 PM E [facility] Outpatient Attender: HÉCTOR STEPHENS 05/12/2020 02:00:00 PM [facility] Outpatient Attender: GURINDER HAJI 05/08/2020 12:30:00 PM ED [facility] Outpatient Attender: HÉCTOR STEPHENS 05/04/2020 10:00:00 AM E [facility] Outpatient Attender: GURINDER HAJI 03/20/2020 09:06:00 AM ED [facility] Outpatient Attender: GURINDER HAJI 03/06/2020 10:30:00 AM ED [facility] Outpatient Attender: GURINDER HAJI 02/28/2020 08:13:00 AM ED [facility] Outpatient Attender: HARINDER RANGEL 02/15/2020 01:00:00 PM [facility] Outpatient Attender: CHAD DAWSON 01/24/2020 11:51:00 AM [facility] Insurance Providers Payer name Policy type / Coverage type Policy ID Covered green party ID Covered green party's relationship to campos Policy Campos Plan Information [facility] [id number] [facility] [id number] [facility] [id number] [facility] [id number] [facility] [id number] [facility] [id number] [facility] [id number] [facility] [id number] [facility] [id number] [facility] [id number] SELF PAY ONLY [id number] SP [id number] Problems, Conditions, and Diagnoses Code Display Name Description Problem Type Effective Dates Data Source(s) F41.9 Anxiety disorder, unspecified ANXIETY DISORDER, UNSPEC IFIED Diagnosis 09/05/2020 01:00:00 PM [facility] F31.9 Bipolar disorder, unspecified BIPOLAR DISORDER, UNSPEC IFIED Diagnosis 09/05/2020 01:00:00 PM [facility]
[2020-09-26 10:38] LABS: HEMATOCRIT 41.8 % (36.0-47.0); HEMOGLOBIN 13.7 g/dl (12.0-15.5); MEAN CORPUSCULAR HEMOGLOBIN 29.1 pg (27.0-33.0); MEAN CORPUSCULAR HGB CONC 32.8 g/dl (32.0-36.5); MEAN CORPUSCULAR VOLUME 88.9 fl (80.0-96.0); PLATELET COUNT, AUTOMATED 204 10^3/uL (150-450); WHITE BLOOD COUNT 8.9 10^3/uL (4.0-10.0)
[2020-09-26 11:16] LABS: HCG, SERUM QUALITATIVE NEGATIVE (NEGATIVE)
[2020-09-26] MEDS ORDERED: METOCLOPRAMIDE INJ 10MG/2ML VIAL (J2765 PER 1) As Ordered ONE (12:54)
[2020-09-26] MEDS ORDERED: ROCURONIUM BROMIDE 50 MG/5 ML VIAL As Ordered ONE (12:54)
[2020-09-26] MEDS ORDERED: ONDANSETRON 4MG/2ML VIAL As Ordered ONE (12:54)
[2020-09-26] MEDS ORDERED: propofoL 200 MG/20 ML VIAL As Ordered ONE (12:54)
[2020-09-26] MEDS ORDERED: LIDOCAINE 2% 100MG/5ML SDV (FOR ANES.) As Ordered ONE (12:54)
[2020-09-26] MEDS ORDERED: fentaNYL 100 MCG/2 ML INJECTION (J3010) As Ordered ONE (12:57)
[2020-09-26] MEDS ORDERED: MIDAZOLAM INJ 2MG/2ML VIAL (J2250 PER 1MG) As Ordered ONE (13:00)
[2020-09-26] MEDS ORDERED: BUPIVACAINE HCL 0.5% 10ML VIAL As Ordered ONE (13:41)
[2020-09-26] MEDS ORDERED: ACETAMINOPHEN 650 MG SUPP As Ordered ONE (13:41)
[2020-09-26] MEDS ORDERED: LEVONORGESTREL 52MG (MIRENA) IUD As Ordered ONE (13:45)
[2020-09-26] MEDS ORDERED: dexameTHASONE 4 MG/ML 1ML VIAL (J1100 PER 1MG) As Ordered ONE (15:03)
[2020-09-26] MEDS ORDERED: KETOROLAC 60MG 2ML VIAL As Ordered ONE (15:03)
[2020-09-26] MEDS ORDERED: SUGAMMADEX SODIUM 500 MG/5 ML VIAL (BRIDION) As Ordered ONE (15:03)
[2020-09-26] MEDS ORDERED: oxyCODONE 5MG TAB PO PRN (15:45)
[2020-09-26] MEDS ORDERED: ACETAMINOPHEN TAB 650MG DOSE (2X325MG) PO ONE (15:45)
[2020-09-26] MEDS ORDERED: KETOROLAC 30 MG/ML 1ML VIAL IV PRN (15:45)
[2020-09-26] MEDS ORDERED: ONDANSETRON 4MG/2ML VIAL IV PRN (15:45)
[2020-09-26] MEDS ORDERED: fentaNYL 100 MCG/2 ML INJECTION (J3010) IV PRN (15:45)
[2020-09-26] MEDS ORDERED: LR 1,000 ML IV SCH (15:45)
[2020-09-26 17:45] VITALS: BP 124/75
--- NOTE | 2020-09-27 10:12 | RO ---
OPERATIVE NOTE DATE OF OPERATION: 09/26/2020 PREOPERATIVE DIAGNOSIS: Satisfied parity and mid-cycle ovulatory pelvic pain. POSTOPERATIVE DIAGNOSIS: Satisfied parity as well as endometriosis. PROCEDURE: Laparoscopic bilateral salpingectomy and Mirena intrauterine device insertion. SURGEON: Dr. Shailesh Ponce DOGMAN/WOMAN: Dr. Mace ANESTHESIA: General endotracheal anesthesia . ESTIMATED BLOOD LOSS: 2 mL IV FLUIDS: 700 mL of LR. URINE OUTPUT: 100 mL via Lawrence catheter. ANTIBIOTICS: None indicated. COMPLICATIONS: None. OPERATIVE FINDINGS: Inspection of the abdomen and pelvis revealed a normal liver, normal gallbladder, normal gastric curve. Inspection of the pelvis revealed a normal appendix. Endometrial implants were seen in the posterior cul-de-sac especially around the right uterosacral ligament and as well as some powder burn endometriosis lesions around the right ovary and right ovarian fossa. DESCRIPTION OF PROCEDURE: The risks, benefits, indications, and alternatives of the procedure were reviewed with the patient and informed consent was obtained. The patient was taken to the operating room where general anesthesia was obtained without difficulty. The patient was then placed in lithotomy position using gel-padded Abiel stirrups. The patient's arms were then gently tucked to her sides with padding. The patient was then prepped and draped in the usual sterile fashion. A surgical time-out was then performed and the patient's identity and planned procedure were verified with the operative team. A Lawrence catheter was placed first to drain the bladder. A sterile speculum was then placed into the patient's vagina and the cervix was visualized. A single-toothed tenaculum was used to grasp the anterior lip of the cervix. The uterus was then sounded to 8 cm with a uterine sound device. The Mirena IUD was then opened on the field. The Mirena IUD was then inserted into the uterus per the manufacture guidelines without difficulty. The IUD strings were then trimmed 3 cm from the cervical os and the single-tooth tenaculum was then removed from the anterior lip of the cervix. There was excellent hemostasis at the tenaculum sites. A sterile sponge stick was then inserted into the vagina as a means to manipulate the uterus. Gloves were then exchanged and attention was turned to the patient's abdomen where a 5 mm skin incision was made in the inferior aspect of the umbilicus after injection of Marcaine. A 5 mm trocar and sleeve were then carefully introduced into the peritoneal cavity under direct visualization at a 90 degree angle while tenting up the abdominal wall. Intraperitoneal placement was confirmed via direct visualization and entry pressure was noted to be less than 5 mmHg. A pneumoperitoneum was obtained with several liters of CO2 gas. Upon entry into the peritoneal cavity, structures immediately below the incision were inspected and found to be free of injury. A survey of the patient's abdomen and pelvis was notable for a normal appearing liver, gallbladder, gastric curve, and a normal appendix. The uterus appeared normal as well as the bilateral fallopian tubes. There were endometrial implants along the right ovary. The left ovary appeared normal. The posterior cul-de-sac was inspected and endometrial implants were noted at the right uterosacral ligament and the right ovarian fossa as well as within the cul de sac itself. The anterior cul-de-sac and bladder were inspected and found to be normal and had no endometrial implants. Two additional 5 mm trocars, one in the left lateral aspect of the abdominal wall and one in the right lateral aspect of the abdominal wall were then placed under direct laparoscopic visualization after injection of Marcaine and skin incisions were made with a scalpel. Using the LigaSure electrocautery, the left fallopian tube was dissected from the mesosalpinx from the fimbriated end to the isthmic portion, taking care to cauterize the vasculature within the mesosalpinx. The fallopian tube was then amputated at its connection to the uterine cornua and removed from the patient's abdomen. Attention was then turned to the patient's right fallopian tube which was lifted by a blunt grasper and removed in a similar fashion with the LigaSure electrocautery. All operative sites were inspected and found to be hemostatic. The entire fallopian tubes were submitted to pathology. The gas was then turned off and all CO2 was removed from the patient's abdomen. Operative sites remained hemostatic. All trocars were then removed under direct visualization and there was no bleeding seen from the trocar sites. Skin incisions were then closed with 4-0 Monocryl suture and all incisions were then covered with Dermabond. The patient's Lawrence catheter was removed and the sponge stick was removed from the vagina. All instruments were then confirmed to have been removed from the vagina. At the completion of the case, the sponge, instrument, and needle counts were correct x2. The patient tolerated the procedure well. She was cleansed and dried, taken out of the lithotomy position, awakened from anesthesia, and taken to the PACU in stable condition. GUILLERMINAD
--- NOTE | 2020-09-27 12:54 | IPNPDOC ---
Text Note Date of Service The patient was seen on 09/27/20. NOTE Joann Lot # [id number] VS,Fishbone, I+O VS, Fishbone, I+O Vital Signs Date Time Temp Pulse Resp B/P (MAP) Pulse Ox O2 Delivery O2 Flow Rate FiO2 09/26/20 17:45 98.2 78 16 124/75 (91) 98 Room Air 09/26/20 15:15 2 I&O- Last 24 Hours up to 6 AM 09/27/20 06:00 Intake Total 1040 ml Output Total 102 ml Balance 938 ml KAL NGUYEN DO Sep 27, 2020 12:54
== END 2020-09-26 17:45 | disposition home or self-care (01) ==
LOC: M SDC 09:52
PROVIDERS: ATTEND Obstetrics & Gynecology
DX: Z30.2 Encounter for sterilization (principal); R10.2 Pelvic and perineal pain; J45.909 Unspecified asthma, uncomplicated; K21.9 Gastro-esophageal reflux disease without esophagitis; F31.9 Bipolar disorder, unspecified; F43.10 Post-traumatic stress disorder, unspecified; F41.9 Anxiety disorder, unspecified; F17.290 Nicotine dependence, other tobacco product, uncomplicated; Z79.899 Other long term (current) drug therapy
CPT/HCPCS: 36415; 58300; 58661; 84703; 85027; 88302; J1100; J1885; J2250; J2405; J2765; J3010; J7298

== ENCOUNTER 2020-09-27 20:34 | Emergency (ER) | payer OTHER ==
[~2020-09-27] VITALS: Ht 157.5 cm; Wt 74.1 kg
[~2020-09-27 20:34] MED LIST changes: -LR 1,000 ML IV ONE
--- OUTSIDE RECORDS SUMMARY | 2020-09-27 20:38 | CCD ---
Author Author [facility] Organization [facility] Address Unknown Phone Unavailable Care Team Providers Care Substation Superintendent Name Role Phone Vi STEPHENS Unavailable Unavailable CAHD DAWSON Unavailable Unavailable Chioma RANGEL Unavailable Unavailable [...] is protected by Article 27-F of the [facility] Public Health law. If you continue you may have access to information: Regarding HIV / AIDS; Provided by facilities licensed or operated by the [facility] Office of Mental Health; or Provided by the [facility] Office for People With Developmental Disabilities. If such information is present, then the following [facility] mandated warning applies: This information has been [...] law may result in a fine or care home sentence or both. A general authorization for the release of medical or other information is NOT sufficient authorization for further disc losure. Encounters Encounter Providers Location Date Indications Data Source(s ) Outpatient Attender: HÉCTOR STEPHENS 09/21/2020 11:00:00 AM E [facility] Outpatient Attender: HÉCTOR STEPHENS 09/05/2020 01:00:00 PM E [facility] Outpatient Attender: HÉCTOR STEPHENS 08/31/2020 11:00:00 AM E [facility] Outpatient Attender: GURINDER HAJI 08/28/2020 01:30:00 PM ES [facility] Outpatient Attender: HÉCTOR STEPHENS 08/17/2020 10:00:00 AM [facility] Outpatient Attender: HÉCTOR STEPHENS 08/08/2020 10:00:00 AM E [facility] Outpatient Attender: HÉCTOR STEPHENS 07/18/2020 10:00:00 AM E [facility] Outpatient Attender: HÉCTOR STEPHENS 07/10/2020 10:00:00 AM [facility] Outpatient Attender: GURINDER HAJI 07/03/2020 01:30:00 PM ES [facility] Outpatient Attender: HÉCTOR STEPHENS 06/27/2020 03:00:00 PM E [facility] Outpatient Attender: HÉCTOR STEPHENS 06/13/2020 03:00:00 PM E [facility] Outpatient Attender: HÉCTOR STEPHENS 05/30/2020 03:00:00 PM E [facility] Outpatient Attender: HÉCTOR STEPHENS 05/12/2020 02:00:00 PM [facility] Outpatient Attender: GURINDER HAJI 05/08/2020 12:30:00 PM ED [facility] Outpatient Attender: HÉCTOR STEPHENS 05/04/2020 10:00:00 AM E [facility] Outpatient Attender: GURINDER HAJI 03/20/2020 09:06:00 AM ED [facility] Outpatient Attender: GURINDER HAJI 03/06/2020 10:30:00 AM ED [facility] Outpatient Attender: GURINDER HAJI 02/28/2020 08:13:00 AM ED [facility] Outpatient Attender: HARINDER RANGEL 02/15/2020 01:00:00 PM [facility] Outpatient Attender: CHAD DAWSON 01/24/2020 11:51:00 AM [facility] Insurance Providers Payer name Policy type / Coverage type Policy ID Covered alliance party ID Covered alliance party's relationship to campos Policy Campos Plan Information [facility] [id number] [facility] [id number] [facility] [id number] [facility] [id number] [facility] [id number] [facility] [id number] [facility] [id number] [facility] [id number] [facility] [id number] [facility] [id number] SELF PAY ONLY [id number] SP [id number] Problems, Conditions, and Diagnoses Code Display Name Description Problem Type Effective Dates Data Source(s) F41.9 Anxiety disorder, unspecified ANXIETY DISORDER, UNSPEC IFIED Diagnosis 09/05/2020 01:00:00 PM [facility] F31.9 Bipolar disorder, unspecified BIPOLAR DISORDER, UNSPEC IFIED Diagnosis 09/05/2020 01:00:00 PM [facility]
--- OUTSIDE RECORDS SUMMARY | 2020-09-27 22:03 | CCD ---
Author Author [facility] Organization [facility] Address Unknown Phone Unavailable Care Team Providers Care Electrician'S Assistant Name Role Phone Vi STEPHENS Unavailable Unavailable [...] is protected by Article 27-F of the [facility] Public Health law. If you continue you may have access to information: Regarding HIV / AIDS; Provided by facilities licensed or operated by the [facility] Office of Mental Health; or Provided by the [facility] Office for People With Developmental Disabilities. If such information is present, then the following [facility] mandated warning applies: This information has [...] law may result in a fine or chcf sentence or both. A general authorization for the release of medical or other information is NOT sufficient authorization for further disc losure. Encounters Encounter Providers Location Date Indications Data Source(s ) Outpatient Attender: HÉCTOR STEPHENS 09/21/2020 11:00:00 AM E [facility] Outpatient Attender: HÉCTOR STEPHENS 09/05/2020 01:00:00 PM E [facility] Outpatient Attender: HÉCTOR STEPHENS 08/31/2020 11:00:00 AM E [facility] Outpatient Attender: GURINDER HAJI 08/28/2020 01:30:00 PM ES [facility] Outpatient Attender: HÉCTOR STEPHENS 08/17/2020 10:00:00 AM [facility] Outpatient Attender: HÉCTOR STEPHENS 08/08/2020 10:00:00 AM E [facility] Outpatient Attender: HÉCTOR STEPHENS 07/18/2020 10:00:00 AM E [facility] Outpatient Attender: HÉCTOR STEPHENS 07/10/2020 10:00:00 AM [facility] Outpatient Attender: GURINDER HAJI 07/03/2020 01:30:00 PM ES [facility] Outpatient Attender: HÉCTOR STEPHENS 06/27/2020 03:00:00 PM E [facility] Outpatient Attender: HÉCTOR STEPHENS 06/13/2020 03:00:00 PM E [facility] Outpatient Attender: HÉCTOR STEPHENS 05/30/2020 03:00:00 PM E [facility] Outpatient Attender: HÉCTOR STEPHENS 05/12/2020 02:00:00 PM [facility] Outpatient Attender: GURINDER HAJI 05/08/2020 12:30:00 PM ED [facility] Outpatient Attender: HÉCTOR STEPHENS 05/04/2020 10:00:00 AM E [facility] Outpatient Attender: GURINDER HAJI 03/20/2020 09:06:00 AM ED [facility] Outpatient Attender: GURINDER HAJI 03/06/2020 10:30:00 AM ED [facility] Outpatient Attender: GURINDER HAJI 02/28/2020 08:13:00 AM ED [facility] Outpatient Attender: HARINDER RANGEL 02/15/2020 01:00:00 PM [facility] Outpatient Attender: CHAD DAWSON 01/24/2020 11:51:00 AM [facility] Insurance Providers Payer name Policy type / Coverage type Policy ID Covered constitution party ID Covered constitution party's relationship to campos Policy Campos Plan Information [facility] [id number] [facility] [id number] [facility] [id number] [facility] [id number] [facility] [id number] [facility] [id number] [facility] [id number] [facility] [id number] [facility] [id number] [facility] [id number] SELF PAY ONLY [id number] SP [id number] Problems, Conditions, and Diagnoses Code Display Name Description Problem Type Effective Dates Data Source(s) F41.9 Anxiety disorder, unspecified ANXIETY DISORDER, UNSPEC IFIED Diagnosis 09/05/2020 01:00:00 PM [facility] F31.9 Bipolar disorder, unspecified BIPOLAR DISORDER, UNSPEC IFIED Diagnosis 09/05/2020 01:00:00 PM [facility]
[2020-09-27 22:30] VITALS: BP 128/72
== END 2020-09-27 22:32 | disposition home or self-care (01) ==
LOC: M ED 20:34
DX: L76.22 Postprocedural hemorrhage of skin and subcutaneous tissue following other procedure (principal); Z98.51 Tubal ligation status; J45.909 Unspecified asthma, uncomplicated; Z88.8 Allergy status to other drugs, medicaments and biological substances; Z79.899 Other long term (current) drug therapy

== ENCOUNTER → 2020-10-01 | Outpatient (REF) | payer OTHER | LOC: M LAB REF 17:32 | PROVIDERS: ATTEND Physician Assistant Medical | DX: T81.40XA Infection following a procedure, unspecified, initial encounter (principal); Y92.9 Unspecified place or not applicable; Y93.9 Activity, unspecified ==